=== PATIENT | male | born 1980 | race Caucasian/White ===

== ENCOUNTER → 2017-06-20 | Outpatient (CLI) | payer BC ==
[~2017-06-20] MED LIST: OMNIPAQUE 350 MG/ML, 100ML BOTTLE ONE
== END | disposition home or self-care (01) ==
LOC: CFH 11:54
PROVIDERS: ATTEND Surgery
DX: S39.011A Strain of muscle, fascia and tendon of abdomen, initial encounter (principal); G89.29 Other chronic pain; X58.XXXA Exposure to other specified factors, initial encounter; Y93.89 Activity, other specified; Y92.89 Other specified places as the place of occurrence of the external cause; Y99.8 Other external cause status
CPT/HCPCS: 74177; Q9967

== ENCOUNTER → 2018-02-23 | Outpatient (CLI) | payer BC ==
[~2018-02-23] MED LIST changes: +None at this Time; -OMNIPAQUE 350 MG/ML, 100ML BOTTLE ONE
== END ==
LOC: STAR 13:07
PROVIDERS: ATTEND Orthopaedic Surgery
DX: Z02.9 Encounter for administrative examinations, unspecified (principal)

== ENCOUNTER 2018-03-01 12:24 | Day surgery (SDC) | payer BC ==
[~2018-03-01] VITALS: Ht 170.2 cm; Wt 90.6 kg
[~2018-03-01 12:24] MED LIST changes: +EPINEPHRINE 1 MG/ML, 1ML ONE; +LIDOCAINE/PF 1%, 30ML ONE
[2018-03-01 12:47] VITALS: BP 156/96
[2018-03-01] MEDS ORDERED: LACTATED RINGERS 1,000 ML IV SCH (12:54)
[2018-03-01] MEDS ORDERED: LIDOCAINE-MPF 1%, 2ML ONE (12:58)
[2018-03-01] MEDS ORDERED: FAMOTIDINE 20 MG TABLET PO ONE (13:00)
[2018-03-01] MEDS ORDERED: ONDANSETRON ODT 8 MG PO ONE (13:00)
[2018-03-01] MEDS ORDERED: GABAPENTIN 300 MG CAPSULE PO ONE (13:00)
[2018-03-01] MEDS ORDERED: ACETAMINOPHEN 500 MG TABLET PO ONE (13:00)
[2018-03-01] MEDS ORDERED: LIDOCAINE-MPF 1%, 2ML INFIL ONE (13:00)
[2018-03-01] MEDS ORDERED: MIDAZOLAM 1 MG/ML, 2ML ONE (13:09)
[2018-03-01] MEDS ORDERED: FENTANYL PF 100 MCG/2ML ONE (13:09)
[2018-03-01] MEDS ORDERED: CLINDAMYCIN 150 MG/ML, 6ML ONE (14:23)
[2018-03-01] MEDS ORDERED: MEPERIDINE/PF 25MG/0.5ML IVPush PRN (15:00)
[2018-03-01] MEDS ORDERED: FENTANYL PF 100 MCG/2ML IV PRN (15:00)
[2018-03-01] MEDS ORDERED: MIDAZOLAM 1 MG/ML, 2ML IV PRN (15:00)
[2018-03-01] MEDS ORDERED: EPHEDRINE 50 MG/ML, 1ML IVPush PRN (15:00)
[2018-03-01] MEDS ORDERED: LABETALOL 5MG/ML, 20ML IV PRN (15:00)
[2018-03-01] MEDS ORDERED: ALBUTEROL SULFATE 2.5 MG/3 ML NPPB PRN (15:00)
[2018-03-01] MEDS ORDERED: ONDANSETRON ODT 8 MG PO PRN (15:00)
[2018-03-01] MEDS ORDERED: PROMETHAZINE 12.5 MG SUPP PR PRN (15:00)
[2018-03-01] MEDS ORDERED: DIAZEPAM 5 MG/ML, 2ML IVPush PRN (15:00)
[2018-03-01] MEDS ORDERED: HYDROcodone/APAP 7.5-325MG/15ML UDC PO PRN (15:00)
[2018-03-01] MEDS ORDERED: OXYcodone 5 MG/5 ML ORAL.SOL UDC PO PRN (15:00)
[2018-03-01] MEDS ORDERED: MORPHINE SULFATE 4 MG/ML, 1ML IVPush PRN (15:00)
[2018-03-01] MEDS ORDERED: hydrALAzine 20 MG/ML, 1ML IV PRN (15:00)
[2018-03-01] MEDS ORDERED: DEXAMETHASONE 4 MG/ML, 1ML ONE (15:10)
[2018-03-01] MEDS ORDERED: SUCCINYLCHOLINE 20 MG/ML, 10ML ONE (15:10)
[2018-03-01] MEDS ORDERED: CEFAZOLIN 1,000 MG ONE (15:10)
[2018-03-01] MEDS ORDERED: PROPOFOL 10 MG/ML, 20ML ONE (15:10)
== END 2018-03-01 17:25 | disposition home or self-care (01) ==
LOC: OUT 12:24
PROVIDERS: ATTEND Orthopaedic Surgery
DX: M75.112 Incomplete rotator cuff tear or rupture of left shoulder, not specified as traumatic (principal); M19.012 Primary osteoarthritis, left shoulder; M75.42 Impingement syndrome of left shoulder; M75.52 Bursitis of left shoulder; M75.22 Bicipital tendinitis, left shoulder
CPT/HCPCS: 23430; 29823; 29826; 64415; C1713; J0171; J0330; J0690; J1100; J2250; J2704; J3010; J3490; J7120; Q0162